=== PATIENT | female | born 1945 | race Caucasian/White ===

== ENCOUNTER 2023-01-31 17:46 | Inpatient (IN) | payer SELFPAY ==
[2023-01-31 17:58] VITALS: BMI 34.0
[2023-01-31 20:14] LABS: VENOUS BASE EXCESS 4.9 mmol/L (-2-2); VENOUS O2 SATURATION 61.8 % (70-80); VENOUS PCO2 53.7 mmHg (38-52); VENOUS PH 7.388 (7.310-7.410)
[2023-01-31 20:33] LABS: INR 1.01 (0.83-1.09); PROTHROMBIN TIME (PATIENT) 11.7 SEC (9.7-13.0)
[2023-01-31 20:35] LABS: ACTIVATED PTT 26.6 SECONDS (25.2-36.5)
[2023-01-31 20:41] LABS: CALCIUM 9.1 mg/dL (8.5-10.1)
[2023-01-31 20:43] LABS: ALBUMIN 3.6 g/dl (3.4-5.0)
[2023-01-31 20:44] LABS: CREATININE 0.5 mg/dL (0.55-1.3)
[2023-01-31 20:45] LABS: PHOSPHOROUS 3.2 mg/dL (2.5-4.9)
[2023-01-31 20:46] LABS: TOT PROT 7.7 g/dl (6.4-8.2)
[2023-01-31 20:47] LABS: BILIRUBIN,TOTAL 0.2 mg/dL (0.2-1)
[2023-01-31 20:50] LABS: N-TERMINAL BNP 342.6 pg/ml (5-450)
[2023-01-31] MEDS ORDERED: SODIUM CHLORIDE 0.9% 500 ML INFUS.BAG IV ONE (21:19)
[2023-01-31] MEDS ORDERED: ACETAMINOPHEN 1000 MG/100 ML BAG IVPB ONE (21:19)
[2023-01-31] MEDS ORDERED: ALBUTEROL SO4 0.083% IH SOL 2.5 MG/3 ML VIAL.NEB. NEB ONE ×2 (21:43→22:05)
[2023-01-31] MEDS ORDERED: ACETAMINOPHEN INJECTION 100 ML IVPB ONE (22:06)
[2023-01-31 22:23] LABS: BASO % 0.3 % (0-2.0); EOS % 1.7 % (0-4.5); HEMATOCRIT 36.5 % (32.4-45.2); HEMOGLOBIN 12.3 GM/dL (10.7-15.3); LYMPH % 19.7 % (8-40); MCH 29.7 pg (25.7-33.7); MCHC 33.6 g/dl (32.0-36.0); MEAN CELL VOLUME 88.3 fl (80-96); MEAN PLT VOLUME 6.8 fl (7.5-11.1); NEUT % 61.3 % (42.8-82.8); PLATELET COUNT 251 10^3/uL (134-434); RBC 4.13 M/mm3 (3.60-5.2); RDW 13.5 % (11.6-15.6); WHITE BLOOD COUNT 6.3 K/mm3 (4.0-10.0)
[2023-01-31] MEDS ORDERED: KETOROLAC TROMETHAMINE 15 MG/ML VIAL ONE (22:50)
[2023-01-31] MEDS ORDERED: KETOROLAC TROMETHAMINE 15 MG/ML VIAL IVPUSH ONE (22:52)
[2023-01-31 23:02] LABS: URINE APPEARANCE CLEAR; URINE BILIRUBIN NEGATIVE (NEGATIVE); URINE COLOR YELLOW; URINE GLUCOSE (UA) NEGATIVE (NEGATIVE); URINE KETONE NEGATIVE (NEGATIVE); URINE LEUK ESTERASE NEGATIVE (NEGATIVE); URINE NITRITE NEGATIVE (NEGATIVE); URINE PROTEIN NEGATIVE (NEGATIVE); URINE UROBILINOGEN 0.2 mg/dL (0.2-1.0)
[2023-02-01] MEDS ORDERED: morphine CARPU-JECT 4 MG/1 ML DISP.SYRIN IVPUSH ONE (01:03)
[2023-02-01] MEDS ORDERED: morphine SULFATE 4 MG/ML VIAL ONE (01:07)
[2023-02-01] MEDS ORDERED: ACETAMINOPHEN 325 MG TABLET (FP) PO PRN (01:17)
[2023-02-01] MEDS ORDERED: ALBUTEROL SO4 0.083% IH SOL 2.5 MG/3 ML VIAL.NEB. NEB PRN (01:17)
[2023-02-01] MEDS ORDERED: hydrALAZINE HCL 10 MG TABLET PO PRN (01:38)
[2023-02-01] MEDS ORDERED: methylPREDNISolone NA SUCC 40 MG/1 ML VIAL ONE ×4 (04:26→20:05)
[2023-02-01] MEDS ORDERED: OSELTAMIVIR PHOSPHATE 75 MG CAPSULE ONE ×3 (04:26→22:14)
[2023-02-01] MEDS: OSELTAMIVIR PHOSPHATE 75 MG CAPSULE PO SCH ×2 (04:34→10:13)
[2023-02-01] MEDS: methylPREDNISolone NA SUCC 40 MG/1 ML VIAL IVPUSH SCH ×4 (04:34→20:18)
[2023-02-01 06:37] LABS: HEMATOCRIT 35.4 % (32.4-45.2); HEMOGLOBIN 12.1 GM/dL (10.7-15.3); MCH 30.3 pg (25.7-33.7); MCHC 34.2 g/dl (32.0-36.0); MEAN CELL VOLUME 88.5 fl (80-96); MEAN PLT VOLUME 6.9 fl (7.5-11.1); PLATELET COUNT 232 10^3/uL (134-434); RDW 13.4 % (11.6-15.6); WHITE BLOOD COUNT 4.9 K/mm3 (4.0-10.0)
[2023-02-01 06:42] LABS: CALCIUM 8.7 mg/dL (8.5-10.1)
[2023-02-01 06:43] LABS: BLOOD UREA NITROGEN 8.4 mg/dL (7-18); MAGNESIUM 1.9 mg/dL (1.8-2.4)
[2023-02-01 06:46] LABS: CREATININE 0.5 mg/dL (0.55-1.3); PHOSPHOROUS 3.2 mg/dL (2.5-4.9)
[2023-02-01] MEDS ORDERED: ACETAMINOPHEN 325 MG TABLET (FP) ONE (06:55)
[2023-02-01] MEDS ORDERED: ALBUTEROL SO4 2.5/IPRATROPIUM 0.5 INH SOL 3 ML VIAL.NEB. NEB ONE (08:19)
[2023-02-01] MEDS: ALBUTEROL SO4 2.5/IPRATROPIUM 0.5 INH SOL 3 ML VIAL.NEB. NEB PRN (08:44)
[2023-02-01] MEDS ORDERED: amLODIPine BESYLATE 10 MG TABLET (FP) ONE (08:50)
[2023-02-01] MEDS ORDERED: ENOXAPARIN NA (PORCINE) 40 MG/0.4 ML DISP.SYRIN SQ ONE (08:51)
[2023-02-01] MEDS: ENOXAPARIN NA (PORCINE) 40 MG/0.4 ML DISP.SYRIN SQ SCH (09:24)
[2023-02-01] MEDS: amLODIPine BESYLATE 10 MG TABLET (FP) PO SCH (09:24)
[2023-02-01] MEDS: NEBIVOLOL 5 MG TABLET (FP) PO SCH (09:31)
[2023-02-01] MEDS ORDERED: ACETAMINOPHEN 1000 MG/100 ML BAG IVPB PRN (10:35)
[2023-02-01] MEDS ORDERED: PANTOPRAZOLE 40 MG TABLET PO ONE (10:46)
[2023-02-01] MEDS ORDERED: MAG HYDROX/AL HYDROX/SIMETH 30 ML UNIT-DOSE CUP ONE ×2 (10:47→18:03)
[2023-02-01] MEDS: PANTOPRAZOLE 40 MG TABLET PO SCH (10:49)
[2023-02-01] MEDS: MAG HYDROX/AL HYDROX/SIMETH -MYLANTA- ORAL SUSPENSION PO SCH ×2 (11:30→18:13)
[2023-02-01] MEDS ORDERED: ACETAMINOPHEN INJECTION 100 ML IVPB ONE ×2 (15:59→20:04)
[2023-02-01] MEDS ORDERED: POTASSIUM CHLORIDE ORAL LIQUID 20 MEQ/15 ML PO ONE (19:44)
[2023-02-01] MEDS ORDERED: POTASSIUM CHLORIDE ORAL LIQUID 20 MEQ/15 ML ONE (20:04)
[2023-02-01] MEDS ORDERED: MELATONIN 5 MG TABLETS PO ONE (21:50)
[2023-02-01] MEDS ORDERED: KETOROLAC TROMETHAMINE 15 MG/ML VIAL IVPUSH ONE (21:52)
[2023-02-01] MEDS ORDERED: KETOROLAC TROMETHAMINE 15 MG/ML VIAL ONE (22:14)
[2023-02-01] MEDS ORDERED: MELATONIN 5 MG TABLETS ONE (22:14)
[2023-02-02] MEDS: MAG HYDROX/AL HYDROX/SIMETH -MYLANTA- ORAL SUSPENSION PO SCH ×2 (02:31→05:15)
[2023-02-02] MEDS: methylPREDNISolone NA SUCC 40 MG/1 ML VIAL IVPUSH SCH ×4 (03:42→17:40)
[2023-02-02 08:09] LABS: BASO % 0.1 % (0-2.0); HEMATOCRIT 36.1 % (32.4-45.2); HEMOGLOBIN 12.6 GM/dL (10.7-15.3); LYMPH % 9.2 % (8-40); MCH 30.3 pg (25.7-33.7); MCHC 34.9 g/dl (32.0-36.0); MEAN CELL VOLUME 86.9 fl (80-96); MEAN PLT VOLUME 6.9 fl (7.5-11.1); MONO % 3.5 % (3.8-10.2); NEUT % 87.2 % (42.8-82.8); PLATELET COUNT 285 10^3/uL (134-434); RBC 4.16 M/mm3 (3.60-5.2); RDW 13.4 % (11.6-15.6); WHITE BLOOD COUNT 9.6 K/mm3 (4.0-10.0)
[2023-02-02 08:17] LABS: ALBUMIN 3.3 g/dl (3.4-5.0); BLOOD UREA NITROGEN 18.1 mg/dL (7-18); CALCIUM 9.2 mg/dL (8.5-10.1)
[2023-02-02 08:21] LABS: CREATININE 0.6 mg/dL (0.55-1.3)
[2023-02-02 08:23] LABS: BILIRUBIN,TOTAL 0.3 mg/dL (0.2-1); TOT PROT 7.4 g/dl (6.4-8.2)
[2023-02-02] MEDS: OSELTAMIVIR PHOSPHATE 75 MG CAPSULE PO SCH ×3 (10:22→21:13)
[2023-02-02] MEDS: NEBIVOLOL 5 MG TABLET (FP) PO SCH (10:25)
[2023-02-02] MEDS: ENOXAPARIN NA (PORCINE) 40 MG/0.4 ML DISP.SYRIN SQ SCH (10:25)
[2023-02-02] MEDS: PANTOPRAZOLE 40 MG TABLET PO SCH (10:25)
[2023-02-02] MEDS: amLODIPine BESYLATE 10 MG TABLET (FP) PO SCH (10:26)
[2023-02-02] MEDS ORDERED: MAG HYDROX/AL HYDROX/SIMETH 30 ML UNIT-DOSE CUP PO SCH (11:44)
[2023-02-02] MEDS ORDERED: CEFTRIAXONE 1 GM in DEXTROSE 5%-WATER - 50 ML IVPB SCH (11:45)
[2023-02-02] MEDS: FAMOTIDINE 20 MG TABLET PO SCH (17:40)
[2023-02-02] MEDS: ACETAMINOPHEN 325 MG TABLET (FP) PO PRN (22:10)
[2023-02-02] MEDS: MELATONIN 5 MG TABLETS PO PRN (22:10)
[2023-02-03] MEDS: methylPREDNISolone NA SUCC 40 MG/1 ML VIAL IVPUSH SCH ×4 (02:29→22:10)
[2023-02-03 08:20] LABS: HEMATOCRIT 35.8 % (32.4-45.2); HEMOGLOBIN 12.3 GM/dL (10.7-15.3); MCH 30.1 pg (25.7-33.7); MCHC 34.5 g/dl (32.0-36.0); MEAN CELL VOLUME 87.2 fl (80-96); MEAN PLT VOLUME 7.5 fl (7.5-11.1); PLATELET COUNT 276 10^3/uL (134-434); RBC 4.11 M/mm3 (3.60-5.2); RDW 13.7 % (11.6-15.6); WHITE BLOOD COUNT 16.3 K/mm3 (4.0-10.0)
[2023-02-03 08:36] LABS: ALBUMIN 3.3 g/dl (3.4-5.0); BLOOD UREA NITROGEN 28.6 mg/dL (7-18)
[2023-02-03 08:39] LABS: CREATININE 0.7 mg/dL (0.55-1.3)
[2023-02-03 08:40] LABS: BILIRUBIN,TOTAL 0.2 mg/dL (0.2-1)
[2023-02-03 08:41] LABS: TOT PROT 7.3 g/dl (6.4-8.2)
[2023-02-03] MEDS: NEBIVOLOL 5 MG TABLET (FP) PO SCH (09:53)
[2023-02-03] MEDS: FAMOTIDINE 20 MG TABLET PO SCH (09:53)
[2023-02-03] MEDS: OSELTAMIVIR PHOSPHATE 75 MG CAPSULE PO SCH ×2 (09:54→22:10)
[2023-02-03] MEDS: ENOXAPARIN NA (PORCINE) 40 MG/0.4 ML DISP.SYRIN SQ SCH (09:54)
[2023-02-03] MEDS: amLODIPine BESYLATE 10 MG TABLET (FP) PO SCH (09:54)
[2023-02-03] MEDS ORDERED: NEBIVOLOL 5 MG TABLET (FP) PO SCH (10:00)
[2023-02-03] MEDS ORDERED: amLODIPine BESYLATE 10 MG TABLET (FP) PO SCH (10:00)
[2023-02-03] MEDS ORDERED: SODIUM CHLORIDE 500 ML IV STA (14:40)
[2023-02-03] MEDS ORDERED: SODIUM CHLORIDE 1,000 ML IV SCH (14:45)
[2023-02-03] MEDS: ACETAMINOPHEN 325 MG TABLET (FP) PO PRN ×2 (17:08→22:08)
[2023-02-03] MEDS: MELATONIN 5 MG TABLETS PO PRN (22:10)
[2023-02-03] MEDS: ALBUTEROL SO4 2.5/IPRATROPIUM 0.5 INH SOL 3 ML VIAL.NEB. NEB PRN (23:50)
[2023-02-04] MEDS: methylPREDNISolone NA SUCC 40 MG/1 ML VIAL IVPUSH SCH ×4 (03:57→21:15)
[2023-02-04] MEDS: ENOXAPARIN NA (PORCINE) 40 MG/0.4 ML DISP.SYRIN SQ SCH (09:06)
[2023-02-04] MEDS: NEBIVOLOL 5 MG TABLET (FP) PO SCH (09:06)
[2023-02-04] MEDS: FAMOTIDINE 20 MG TABLET PO SCH (09:06)
[2023-02-04] MEDS: OSELTAMIVIR PHOSPHATE 75 MG CAPSULE PO SCH ×2 (09:07→21:15)
[2023-02-04] MEDS: amLODIPine BESYLATE 10 MG TABLET (FP) PO SCH (09:07)
[2023-02-04 09:50] LABS: HEMATOCRIT 36.6 % (32.4-45.2); HEMOGLOBIN 12.3 GM/dL (10.7-15.3); MCH 29.6 pg (25.7-33.7); MCHC 33.7 g/dl (32.0-36.0); MEAN CELL VOLUME 87.8 fl (80-96); MEAN PLT VOLUME 7.2 fl (7.5-11.1); PLATELET COUNT 287 10^3/uL (134-434); RBC 4.16 M/mm3 (3.60-5.2); RDW 13.5 % (11.6-15.6); WHITE BLOOD COUNT 16.6 K/mm3 (4.0-10.0)
[2023-02-04 10:11] LABS: ALBUMIN 3.2 g/dl (3.4-5.0); CALCIUM 8.5 mg/dL (8.5-10.1)
[2023-02-04 10:14] LABS: CREATININE 0.6 mg/dL (0.55-1.3)
[2023-02-04 10:16] LABS: BILIRUBIN,TOTAL 0.4 mg/dL (0.2-1)
[2023-02-04] MEDS: ALBUTEROL SO4 2.5/IPRATROPIUM 0.5 INH SOL 3 ML VIAL.NEB. NEB PRN (13:26)
[2023-02-04] MEDS: guaiFENesin/CODEINE 5 ML UNIT-DOSE CUPS PO PRN (15:23)
[2023-02-04] MEDS: guaiFENesin/CODEINE 10 ML UNIT-DOSE CUPS PO SCH (21:15)
[2023-02-05] MEDS: methylPREDNISolone NA SUCC 40 MG/1 ML VIAL IVPUSH SCH ×4 (03:00→22:00)
[2023-02-05 08:10] LABS: HEMATOCRIT 37.6 % (32.4-45.2); HEMOGLOBIN 12.9 GM/dL (10.7-15.3); MCH 30.1 pg (25.7-33.7); MCHC 34.3 g/dl (32.0-36.0); MEAN CELL VOLUME 87.6 fl (80-96); MEAN PLT VOLUME 7.5 fl (7.5-11.1); PLATELET COUNT 276 10^3/uL (134-434); RDW 13.4 % (11.6-15.6); WHITE BLOOD COUNT 14.4 K/mm3 (4.0-10.0)
[2023-02-05 08:12] LABS: BLOOD UREA NITROGEN 21.5 mg/dL (7-18); CALCIUM 9.2 mg/dL (8.5-10.1)
[2023-02-05 08:13] LABS: ALBUMIN 3.1 g/dl (3.4-5.0)
[2023-02-05 08:15] LABS: CREATININE 0.6 mg/dL (0.55-1.3)
[2023-02-05 08:18] LABS: BILIRUBIN,TOTAL 0.4 mg/dL (0.2-1)
[2023-02-05] MEDS: ENOXAPARIN NA (PORCINE) 40 MG/0.4 ML DISP.SYRIN SQ SCH (09:03)
[2023-02-05] MEDS: guaiFENesin/CODEINE 5 ML UNIT-DOSE CUPS PO PRN (09:03)
[2023-02-05] MEDS: OSELTAMIVIR PHOSPHATE 75 MG CAPSULE PO SCH ×2 (09:03→22:00)
[2023-02-05] MEDS: FAMOTIDINE 20 MG TABLET PO SCH ×2 (09:03→22:00)
[2023-02-05] MEDS: NEBIVOLOL 5 MG TABLET (FP) PO SCH (09:03)
[2023-02-05] MEDS: amLODIPine BESYLATE 10 MG TABLET (FP) PO SCH (09:03)
[2023-02-05] MEDS: ALBUTEROL SO4 2.5/IPRATROPIUM 0.5 INH SOL 3 ML VIAL.NEB. NEB SCH ×3 (12:42→20:05)
[2023-02-05] MEDS ORDERED: guaiFENesin/CODEINE 5 ML UNIT-DOSE CUPS PO PRN (14:00)
[2023-02-05] MEDS: ACETAMINOPHEN 325 MG TABLET (FP) PO PRN (14:34)
[2023-02-05] MEDS ORDERED: KETOROLAC TROMETHAMINE 15 MG/ML VIAL IM ONE (17:42)
[2023-02-05] MEDS: MELATONIN 5 MG TABLETS PO PRN (21:59)
[2023-02-05] MEDS: guaiFENesin/CODEINE 10 ML UNIT-DOSE CUPS PO SCH (22:00)
[2023-02-06] MEDS: methylPREDNISolone NA SUCC 40 MG/1 ML VIAL IVPUSH SCH ×4 (02:17→21:49)
[2023-02-06 07:29] LABS: ALBUMIN 2.9 g/dl (3.4-5.0); BLOOD UREA NITROGEN 22.5 mg/dL (7-18); CALCIUM 8.7 mg/dL (8.5-10.1); MAGNESIUM 2.2 mg/dL (1.8-2.4)
[2023-02-06 07:31] LABS: CREATININE 0.6 mg/dL (0.55-1.3); PHOSPHOROUS 2.8 mg/dL (2.5-4.9)
[2023-02-06 07:32] LABS: BILIRUBIN,TOTAL 0.5 mg/dL (0.2-1); TOT PROT 6.4 g/dl (6.4-8.2)
[2023-02-06 07:34] LABS: HEMATOCRIT 35.4 % (32.4-45.2); HEMOGLOBIN 12.1 GM/dL (10.7-15.3); MCH 29.6 pg (25.7-33.7); MCHC 34.2 g/dl (32.0-36.0); MEAN CELL VOLUME 86.6 fl (80-96); MEAN PLT VOLUME 7.1 fl (7.5-11.1); PLATELET COUNT 261 10^3/uL (134-434); RBC 4.09 M/mm3 (3.60-5.2); RDW 13.3 % (11.6-15.6)
[2023-02-06] MEDS: ALBUTEROL SO4 2.5/IPRATROPIUM 0.5 INH SOL 3 ML VIAL.NEB. NEB SCH ×4 (07:45→20:14)
[2023-02-06 09:11] LABS: ANISOCYTOSIS 1+; MACROCYTOSIS 0
[2023-02-06] MEDS: FAMOTIDINE 20 MG TABLET PO SCH ×2 (09:37→21:49)
[2023-02-06] MEDS: NEBIVOLOL 5 MG TABLET (FP) PO SCH (09:37)
[2023-02-06] MEDS: ACETAMINOPHEN 325 MG TABLET (FP) PO PRN ×2 (09:37→20:41)
[2023-02-06] MEDS: ENOXAPARIN NA (PORCINE) 40 MG/0.4 ML DISP.SYRIN SQ SCH (09:37)
[2023-02-06] MEDS: amLODIPine BESYLATE 10 MG TABLET (FP) PO SCH (09:37)
[2023-02-06] MEDS ORDERED: FUROSEMIDE 40 MG/4 ML INJECTABLE VIAL IVPUSH ONE (10:58)
[2023-02-06] MEDS ORDERED: KETOROLAC TROMETHAMINE 15 MG/ML VIAL IVPUSH ONE (18:54)
[2023-02-06] MEDS: guaiFENesin/CODEINE 10 ML UNIT-DOSE CUPS PO SCH (21:49)
[2023-02-06] MEDS: MELATONIN 5 MG TABLETS PO PRN (21:49)
[2023-02-07] MEDS: methylPREDNISolone NA SUCC 40 MG/1 ML VIAL IVPUSH SCH ×3 (03:24→16:49)
[2023-02-07] MEDS: ALBUTEROL SO4 2.5/IPRATROPIUM 0.5 INH SOL 3 ML VIAL.NEB. NEB SCH ×4 (07:52→21:29)
[2023-02-07] MEDS: ENOXAPARIN NA (PORCINE) 40 MG/0.4 ML DISP.SYRIN SQ SCH (09:15)
[2023-02-07] MEDS: amLODIPine BESYLATE 10 MG TABLET (FP) PO SCH (09:15)
[2023-02-07] MEDS: NEBIVOLOL 5 MG TABLET (FP) PO SCH (09:15)
[2023-02-07] MEDS: FAMOTIDINE 20 MG TABLET PO SCH ×2 (09:15→21:25)
[2023-02-07] MEDS ORDERED: IBUPROFEN 400 MG TABLET (FP) PO ONE (11:24)
[2023-02-07] MEDS: ACETAMINOPHEN 325 MG TABLET (FP) PO PRN ×2 (17:02→22:44)
[2023-02-07] MEDS: MELATONIN 5 MG TABLETS PO PRN (21:25)
[2023-02-07] MEDS: guaiFENesin/CODEINE 10 ML UNIT-DOSE CUPS PO SCH (21:25)
[2023-02-07] MEDS ORDERED: SIMETHICONE 80 MG TAB.CHEW (FP) PO ONE (22:26)
[2023-02-08] MEDS: BISACODYL 10 MG SUPP.RECT PR ONE ×2 (06:50→06:53)
[2023-02-08] MEDS ORDERED: FUROSEMIDE 40 MG TABLET (FP) PO ONE (07:00)
[2023-02-08] MEDS: ALBUTEROL SO4 2.5/IPRATROPIUM 0.5 INH SOL 3 ML VIAL.NEB. NEB SCH ×3 (08:13→16:22)
[2023-02-08] MEDS: amLODIPine BESYLATE 10 MG TABLET (FP) PO SCH (09:15)
[2023-02-08] MEDS: NEBIVOLOL 5 MG TABLET (FP) PO SCH (09:15)
[2023-02-08] MEDS: FAMOTIDINE 20 MG TABLET PO SCH (09:15)
[2023-02-08 09:25] VITALS: RESP 18
[2023-02-08] MEDS ORDERED: predniSONE 20 MG TABLET (UD) PO SCH (10:00)
[2023-02-08 12:47] LABS: ALBUMIN 2.7 g/dl (3.4-5.0); BLOOD UREA NITROGEN 22.8 mg/dL (7-18); CALCIUM 8.4 mg/dL (8.5-10.1)
[2023-02-08 12:50] LABS: CREATININE 0.7 mg/dL (0.55-1.3); PHOSPHOROUS 2.7 mg/dL (2.5-4.9)
[2023-02-08 12:52] LABS: BILIRUBIN,TOTAL 0.4 mg/dL (0.2-1); TOT PROT 6.1 g/dl (6.4-8.2)
[2023-02-08 13:54] VITALS: BP 126/88; PULSE 87; TEMP 98.7
== END 2023-02-08 18:50 | disposition home or self-care (01) | DRG 113 ==
LOC: JER 17:46 → JERBED 21:17 → J4S 02-02 00:34 → OBSVTOIN 02-02 16:42
PROVIDERS: ADMIT Internal Medicine; ATTEND Internal Medicine
DX: J10.1 Influenza due to other identified influenza virus with other respiratory manifestations (principal); J96.01 Acute respiratory failure with hypoxia; I47.1 Supraventricular tachycardia; E78.5 Hyperlipidemia, unspecified; E87.6 Hypokalemia; J44.1 Chronic obstructive pulmonary disease with (acute) exacerbation; E87.1 Hypo-osmolality and hyponatremia; I10 Essential (primary) hypertension; E03.9 Hypothyroidism, unspecified; R94.5 Abnormal results of liver function studies; Z87.891 Personal history of nicotine dependence
CPT/HCPCS: 0241U-QW; 36415; 71045-TC-FY; 71275-TC; 74018-TC-FY; 80048; 80053; 81003; 82436; 82533; 82803; 83735; 83880; 83930; 83935; 84100; 84133; 84300; 84439; 84443; 84479; 84480; 84484; 85025; 85027; 85379; 85610; 85730; 86140; 86850; 86900; 86901; 87070; 87077; 87086; 87186; 87205; 87899; 93005; 93010; 93306-TC; 94640; 94761; 97116-GP; 97161-GP; 99285-25; G0378